=== PATIENT | female | born 1975 | race Caucasian/White ===

== ENCOUNTER 2017-05-01 17:12 | Emergency (ER) | payer BC, OTHER ==
[2017-05-01 19:45] VITALS: BP 106/57
[2017-05-01] MEDS ORDERED: Acetaminophen TAB* 325 MG PO ONE (20:10)
[2017-05-01] MEDS ORDERED: Oseltamivir CAP* 75 MG CAP PO ONE (20:11)
--- NOTE | 2017-05-01 20:34 | UC ---
Vikram Ruelas Stephanie, scribed for Ross Humphries MD on 05/01/17 at 2011 . FLU HPI - HPI Summary HPI Summary: The pt is a 41 y/o F presenting to with c/o flu symptoms that began on . Symptoms include cough, swollen lymph nodes, nasal congestion, chills, myalgia and fever. She denies dysuria. - History of Current Complaint Chief Complaint: UCRespiratory Stated Complaint: FLU-LIKE SYMPTOMS Time Seen by Provider: 05/01/17 20:00 Hx Obtained From: Patient Hx Last Menstrual Period: 01/24 ?: Yes Onset/Duration: Gradual Onset, Lasting Days - 2, Still Present Severity Currently: Moderate Pain Intensity: 6 Pain Scale Used: 0-10 Numeric Associated Signs & Symptoms: Positive: Fever, Myalgia, Cough, Nasal Congestion - Allergy/Home Medications Allergies/Adverse Reactions: Allergies Allergy/AdvReac Type Severity Reaction Status Date / Time No Known Allergies Allergy Verified 06/20/14 11:05 Home Medications: Home Medications Cholecalciferol TAB* [Vitamin D TAB*] 400 unit PO DAILY 05/01/17 [History Confirmed 05/01/17] Docusate CAP* [Colace Cap*] 100 mg PO DAILY 05/01/17 [History Confirmed 05/01/17 ] PMH/Surg Hx/FS Hx/Imm Hx Previously Healthy: Yes - The pt denies all past medical hx. - Surgical History Surgical History: None - Family History Known Family History: Positive: Cardiac Disease, Hypertension, Diabetes - Social History Occupation: Employed Full-time Lives: With Family Alcohol Use: None Substance Use Type: None Smoking Status (MU): Never Smoked Tobacco Have You Smoked in the Last Year: No - Immunization History Most Recent Influenza Vaccination: 01/2014 Most Recent Tetanus Shot: 05/08/14 Most Recent Pneumonia Vaccination: N/A Review of Systems Constitutional: Fever, Chills Skin: Negative Eyes: Negative ENT: Sinus Congestion Respiratory: Cough Cardiovascular: Negative Gastrointestinal: Negative Genitourinary: Negative Motor: Negative Neurovascular: Negative Musculoskeletal: Myalgia Neurological: Negative Psychological: Negative All Other Systems Reviewed And Are Negative: Yes Physical Exam Triage Information Reviewed: Yes Vital Signs: Initial Vital Signs Temp 99.3 F 05/01/17 19:39 Pulse 92 05/01/17 19:39 Resp 16 05/01/17 19:39 BP 106/57 05/01/17 19:39 Pulse Ox 100 05/01/17 19:39 Vital Signs Reviewed: Yes - Additional Comments General: Mildly ill-appearing, no pain distress Skin: warm, color reflects adequate perfusion, dry Head: normal Eyes: EOMI, DIANN ENT: clear rhinorrhea, mild posterior pharynx erythema Neck: supple, nontender Respiratory: CTA, breath sounds present Cardiovascular: RRR Abdomen: soft, nontender Bowel: present Musculoskeletal: normal, strength/ROM intact Neurological: normal, sensory/motor intact, A&O x3 Psychological: affect/mood appropriate Flu Course/Dx - Course Course Of Treatment: Medications reviewed. - Differential Dx/Diagnosis Provider Diagnoses: INFLUENZA Discharge - Discharge Plan Condition: Stable Disposition: HOME Prescriptions: Oseltamivir CAP* [Tamiflu CAP*] 75 mg PO BID #9 cap Patient Education Materials: Influenza (ED) Referrals: Marion Alejandre MD [Primary Care Provider] - Additional Instructions: FOLLOW UP WITH YOUR DOCTOR. GET RECHECKED FOR ANY WORSENING OF YOUR CONDITION OR QUESTIONS OR CONCERNS. The documentation as recorded by the Vikram kirk Stephanie accurately reflects the service I personally performed and the decisions made by me, Ross Humphries MD.
== END 2017-05-01 20:40 | disposition home or self-care (01) ==
LOC: UCEAST 17:12
DX: J11.1 Influenza due to unidentified influenza virus with other respiratory manifestations (principal)
CPT/HCPCS: 87502; 99212; A9270-GY; G0463

== ENCOUNTER 2017-10-12 08:17 | Inpatient (IN) | payer BC, OTHER ==
--- NOTE | 2017-10-12 10:54 | HP ---
General Information - General Information Maternal Age: 41 Grav: 2 Para: 1 SAB: 0 IEA: 0 Estimated Due Date: 10/31/17 Determined By: LMP Maternal Blood Type and Rh: B Positive - Results this Serology/RPR Result: Non-Reactive Rubella Result: Immune HBsAg Result: Negative HIV Result: Negative GBS Culture Result: Negative Past Medical History Delivery History: Hx Complicated Vaginal Delivery - hx vaginal hematoma Pertinent Past Medical History: See Records - depression/ anxiety Pertinent Past Surgical History: See Records - wisdom tooth extraction Pertinent Family History: Non-Contributory - Antepartal Records Antepartal Records: Reviewed, Uncomplicated - age 42 at [facility] Review of Systems Constitutional: Comfortable CV Complaint: No Respiratory: Shortness of Breath: No Gastrointestinal: No Nausea/Vomiting, Normal Bowel Movement Genitourinary: Leaking Fluid, No Dysuria, No Bleeding Musculoskeletal: No Complaint, No Epigastric Pain Neurological: No Headache, No Visual Changes Movement: Normal Exam Allergies/Adverse Reactions: Allergies No Known Allergies Allergy (Verified 06/20/14 11:05) T-99.1, P-64, R-20, BP- 122/69, O2- 96% - Measurements Height: 5 ft 4.75 in Weight: 77.111 kg Weight in lbs: 170.076296 Body Mass Index (BMI): 28.5 Pre- Weight: 62.142 kg Weight Gained This : 33 lbs and 0 ozs - Exam Breast: Breast Exam Deferred CVA: No CVA Tenderness Extremities: Edema - bilateral pedal edema Heart: Normal Rhythm/Heart Sounds HEENT: No Significant Findings Lungs: Clear Bilaterally Rectal: Rectal Exam Deferred Reflexes: DTR 2+ Thyroid: No Thyromegaly - Abdominal Exam Abdomen Exam: Non-Tender, Fundal Height Consistent with Dates - Ultrasound/Biophysical Profile Ultrasound Status: Not Done Targeted Exam Findings See L&D Outpatient Visit Provider Note for Findings: N/A Estimated Weight: 6.5# Membrane Status: SROM - cervical exam deferred as pt elects expectant management Amniotic Fluid Evaluation: Gross Rupture Bleeding/Discharge: None EFM Findings - External Monitor Findings Baseline Heart Rate: 130 External Monitor Findings: Accelerations Present, No Pattern of Variable or Late Decelerations, Variability Moderate, Baseline Stable Contractions: Irregular, Mild, < 45 Seconds Assessment/Plan - Assessment 41 year old at 37 2/7 weeks gestation with prelabor rupture of membranes No evidence of acidemia Not in labor - Obstetrical Risk Factors Risk Factors Comment: Pt with prelabor rupture of membranes. Options discussed, including initiating augmentation of labor with either Pitocin or oral misoprostol, depending on cervical exam, vs expectant management. Pt strongly prefers expectant management. Pt is GBS negative. Will do expectant management at this time, cervical exam deferred. - Plan Plan: Admit - Anticipate Vaginal Delivery - Date/Time of Admission Date of Admission: 10/12/17 Time of Admission: 09:46
[2017-10-12 11:10] LABS: Hematocrit 36 % (35-47); Hemoglobin 12.2 g/dl (12.0-16.0); Mean Corpuscular HGB Conc 34 g/dl (31-36); Mean Corpuscular Hemoglobin 25 pg (27-31); Mean Corpuscular Volume 73 fL (80-97); Red Blood Count 4.89 10^6/ul (4.00-5.40); Red Cell Distribution Width 15 % (10.5-15); White Blood Count 9.2 10^3/ul (3.5-10.8)
[2017-10-12 11:49] LABS: ABS Basophils 0.1 10^3/ul (0-0.2); ABS Eosinophils 0.1 10^3/ul (0-0.6); ABS Lymphocytes 1.5 10^3/ul (1.0-4.8); ABS Monocytes 0.6 10^3/ul (0-0.8); ABS Nucleated RBC 0 10^3/ul; Eosinophil % 0.6 % (0-6); Lymphocyte % 15.9 % (25-47); Mean Platelet Volume 10.4 um3 (7.4-10.4); Nucleated Red Blood Cells % 0.1; Platelet Count 146 10^3/ul (150-450)
[2017-10-12] MEDS ORDERED: Ibuprofen TAB* 600 MG ONE (20:15)
[2017-10-12] MEDS ORDERED: Witch Hazel PAD* JAR ONE (21:32)
[2017-10-12] MEDS ORDERED: Acetaminophen TAB* 325 MG PO PRN (21:40)
[2017-10-12] MEDS ORDERED: Dibucaine 1% 28.35 GM TUBE PR PRN (21:40)
[2017-10-12] MEDS ORDERED: Glycerin ADULT SUPP PR PRN (21:40)
[2017-10-12] MEDS ORDERED: Witch Hazel PAD* JAR TOPICAL PRN (21:40)
[2017-10-13] MEDS: Ibuprofen TAB* 600 MG PO PRN ×3 (03:22→20:01)
--- NOTE | 2017-10-13 07:06 | PROCNOTE ---
[facility] OB: Delivery Note - Delivery A Date of : 10/12/17 Time of : 19:54 [place] Sex: Female Weight at : 2.916 kg Score 1 Minute: 8 Score 5 Minutes: 9 Gestational Age in Weeks and Days at Delivery: 37 Weeks and 2 Days Delivery Method: Spontaneous Vaginal Labor: Spontaneous Did Patient attempt ?: N/A, No Previous Amniotic Fluid: Clear Anesthesia/Analgesia: None Delivered By: Angela Potts Nursery Level of Nursery: Regular/Bedside - Perineum Perineal Injury: None/Intact - Events Delivery Events of Note: Precipitous Delivery Delivery Events of Note Comment: Pt had prelabor rupture of membranes, gradually progressed to 4-5 cm with expectant management, then rapidly progressed to full dilation and delivery - Additional Delivery Notes Additional Delivery Notes: Pt admitted to labor and delivery with prelabor rupture of membraes with clear fluid. After discussing options, pt elected to manage expectantly. She gradually progressed to active labor and 4-5 cm dilation, then rapidly progressed to full dilation and delivered shortly after initiating pushing efforts. Pt delivered in hands and knees position on the bed, of the head slow and controlled, shoulders following without difficulty. Loose nuchal cord x1 reduced after . Infant passed between mother's legs then mother assisted to hold infant to her chest as she turned onto her back. Cord clamped after pulsation ceased, cut by baby's father. Placenta soon followed without difficulty, intact. Pt's perineum intact. Fundas was firm to palpation. Infant and mother stable at this time.
[2017-10-13 07:26] LABS: ABS Basophils 0 10^3/ul (0-0.2); ABS Eosinophils 0.1 10^3/ul (0-0.6); ABS Lymphocytes 2.1 10^3/ul (1.0-4.8); ABS Monocytes 0.8 10^3/ul (0-0.8); ABS Neutrophils 8.7 10^3/ul (1.5-7.7); ABS Nucleated RBC 0 10^3/ul; Eosinophil % 0.5 % (0-6); Hematocrit 32 % (35-47); Hemoglobin 11.3 g/dl (12.0-16.0); Lymphocyte % 17.7 % (25-47); Mean Corpuscular HGB Conc 35 g/dl (31-36); Mean Corpuscular Hemoglobin 26 pg (27-31); Mean Corpuscular Volume 73 fL (80-97); Mean Platelet Volume 10.4 um3 (7.4-10.4); Nucleated Red Blood Cells % 0; Platelet Count 135 10^3/ul (150-450); Red Blood Count 4.41 10^6/ul (4.00-5.40); Red Cell Distribution Width 15 % (10.5-15); White Blood Count 11.7 10^3/ul (3.5-10.8)
[2017-10-13] MEDS: Docusate CAP* 100 MG PO SCH ×3 (08:49→20:01)
[2017-10-13] MEDS ORDERED: Ferrous Gluconate TAB* 324 MG TAB PO SCH (09:00)
[2017-10-14 07:53] VITALS: BP 120/65
== END 2017-10-14 12:20 | disposition home or self-care (01) | DRG 775 ==
LOC: MCHOBOUT 08:17 → MCHOB 09:46
PROVIDERS: ADMIT Midwife; ATTEND Midwife
PROC: 10E0XZZ Delivery of Products of Conception, External Approach (ICD-10-PCS; principal; 2017-10-12)
PROC: 4A1HXCZ Monitoring of Products of Conception, Cardiac Rate, External Approach (ICD-10-PCS; 2017-10-12)
DX: O42.02 Full-term premature rupture of membranes, onset of labor within 24 hours of rupture (principal); Z37.0 Single live birth; Z3A.37 37 weeks gestation of pregnancy; O69.81X0 Labor and delivery complicated by cord around neck, without compression, not applicable or unspecified
CPT/HCPCS: 36415; 85025; 86850; 86900; 86901; A9270-GY